=== PATIENT | male | born 1965 | race American Indian/Alaskan Native ===

== ENCOUNTER 2018-09-14 19:40 | Emergency (ER) | payer OTHER ==
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
[2018-09-14] MEDS ORDERED: IBUPROFEN PO ONE (20:45)
[2018-09-14] MEDS ORDERED: TYLENOL PO ONE (20:45)
[2018-09-14] MEDS ORDERED: FLEXERIL PO ONE (20:50)
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
[2018-09-15 00:03] VITALS: BP 141/96
== END 2018-09-15 00:04 | disposition home or self-care (01) ==
LOC: ED 19:40
DX: M62.830 Muscle spasm of back (principal); M51.26 Other intervertebral disc displacement, lumbar region; M62.838 Other muscle spasm; Z87.891 Personal history of nicotine dependence; V49.59XA Passenger injured in collision with other motor vehicles in traffic accident, initial encounter; Y93.89 Activity, other specified; Y92.410 Unspecified street and highway as the place of occurrence of the external cause; Y99.8 Other external cause status
CPT/HCPCS: 72040; 72100; 72125; 72131